=== PATIENT | female | born 1985 | race Caucasian/White ===

== ENCOUNTER 2019-09-22 11:52 | Day surgery (SDC) | payer BC ==
[~2019-09-22] VITALS: Ht 160 cm; Wt 86.2 kg
[2019-09-22] MEDS ORDERED: LACTATED RINGERS 1,000 ML IV SCH (12:30)
[2019-09-22 12:52] LABS: UCG SCREEN NEGATIVE
[2019-09-22 13:00] LABS: BASOPHILS % 0.7 % (0.0-2.0); EOSINOPHILS % 4.5 % (0.0-5.0); HEMATOCRIT. 39.2 % (36.0-48.0); HEMOGLOBIN. 13.2 g/dL (12.0-16.0); LYMPHOCYTES % 28.9 % (20.0-50.0); MEAN CORPUSCULAR HEMOGLOBIN 28.7 pg (28.0-32.0); MEAN CORPUSCULAR VOLUME 85.6 fL (81.0-99.0); MEAN PLATELET VOLUME 7.7 fl (7.4-10.4); MONOCYTES % 7.3 % (2.0-8.0); NEUTROPHILS % 58.6 % (40.0-76.0); PLATELET 293 x1000/uL (130-400); RED BLOOD CELL COUNT 4.58 mill/uL (4.2-5.4); RED CELL DISTRIBUTION WIDTH 13.9 % (11.6-14.6)
[2019-09-22 13:07] LABS: CHLORIDE 108 mEq/L (98-107); INR 1.1; PARTIAL THROMBOPLASTIN TIME 27.9 sec (23.4-31.0); PROTHROMBIN TIME 10.9 sec (9.6-11.0)
[2019-09-22] MEDS ORDERED: FERR325T6 PO (14:03)
[2019-09-22] MEDS ORDERED: ACET-2708 PO (14:03)
[2019-09-22] MEDS ORDERED: NAPR220T66 PO (14:03)
[2019-09-22] MEDS ORDERED: FENTANYL CITRATE/PF 50MCG/ML 2ML VIAL ONE (14:37)
[2019-09-22] MEDS ORDERED: MIDAZOLAM HCL 2 MG/2 ML VIAL ONE (14:38)
[2019-09-22] MEDS ORDERED: CEFAZOLIN SODIUM 1000MG/VIAL ONE ×2 (14:39→14:43)
[2019-09-22] MEDS ORDERED: SODIUM CHLORIDE 0.9% 10ML VIAL ONE (14:39)
[2019-09-22] MEDS ORDERED: EPHEDRINE SULFATE 50MG/ML VIAL ONE (14:39)
[2019-09-22] MEDS ORDERED: PROPOFOL 200MG/20ML VIAL IV ONE (14:39)
[2019-09-22] MEDS ORDERED: ROCURONIUM BROMIDE 10MG/ML VIAL 5ML IV ONE (14:39)
[2019-09-22] MEDS ORDERED: LIDOCAINE HCL/PF 1% 10 MG/ML 5ML VIAL ONE (14:39)
[2019-09-22] MEDS ORDERED: LIDOCAINE HCL 1% 20ML VIAL (Pyxis) INJ ONE (15:09)
[2019-09-22] MEDS ORDERED: METOCLOPRAMIDE HCL 10MG/2ML VIAL ONE (15:17)
[2019-09-22] MEDS ORDERED: ONDANSETRON HCL 4MG/2ML INJ ONE (15:17)
[2019-09-22] MEDS ORDERED: KETOROLAC 30MG/ML VIAL ONE (15:17)
[2019-09-22] MEDS ORDERED: DEXAMETHASONE 4MG/ML 1ML VIAL ONE (15:30)
[2019-09-22] MEDS ORDERED: SKIN ADHESIVE 0.7 GM EA TOP ONE (15:50)
[2019-09-22] MEDS ORDERED: HYDROMORPHONE HCL/PF 2MG/ML CPJ IV PRN (16:30)
== END 2019-09-22 19:30 | disposition home or self-care (01) ==
LOC: OR 11:52
PROVIDERS: ATTEND Obstetrics & Gynecology
DX: Z30.2 Encounter for sterilization (principal); D64.9 Anemia, unspecified; Z79.899 Other long term (current) drug therapy; Z98.890 Other specified postprocedural states; Z98.51 Tubal ligation status; Z72.89 Other problems related to lifestyle
CPT/HCPCS: 36415; 58661; 80053; 81025; 85025; 85610; 85730; 86850; 86900; 86901; 88302; J0690; J1100; J1885; J2250; J2405; J2704; J2765; J3010; J3490